=== PATIENT | male | born 1970 | race Caucasian/White ===

== ENCOUNTER 2016-08-30 09:35 | Emergency (ER) | payer BC ==
[~2016-08-30] VITALS: Wt 110.0 kg
[2016-08-30] MEDS ORDERED: KETOROLAC 15 MG INJ IV STA (10:45)
[2016-08-30] MEDS ORDERED: SOD CHLORIDE 0.9% 1,000 ML IV STA (10:45)
[2016-08-30] MEDS ORDERED: LORAZEPAM 0.5 MG TAB PO ONE (11:00)
[2016-08-30 11:04] LABS: BASOPHILS % 0.6 % (0.0-2.0); EOSINOPHILS # 0.2 10^3/ul (0.0-0.5); EOSINOPHILS % 3.6 % (0.0-7.0); HEMATOCRIT 49.4 % (42.0-52.0); HEMOGLOBIN 16.9 g/dl (14.0-18.0); LYMPHOCYTES # 2.8 10^3/ul (0.8-2.9); LYMPHOCYTES % 42.3 % (15.0-51.0); MEAN CORPUSCULAR HEMOGLOBIN 31.8 pg (29.0-33.0); MEAN CORPUSCULAR HGB CONC 34.1 g/dl (32.0-37.0); MEAN CORPUSCULAR VOLUME 93.2 fl (82.0-101.0); MEAN PLATELET VOLUME 10.5 fl (7.4-10.4); MONOCYTE # 0.5 10^3/ul (0.3-0.9); MONOCYTES % 7.1 % (0.0-11.0); NEUTROPHILS % 46.4 % (39.0-77.0); PLATELET COUNT 117 10^3/UL (140-440); RED CELL DISTRIBUTION WIDTH 13.1 % (11.5-14.5); UNCORRECTED WBC 6.6 10^3/ul (4.8-10.8); WHITE BLOOD COUNT 6.6 10^3/ul (4.8-10.8)
[2016-08-30 11:05] LABS: CONDITION 1
[2016-08-30 11:18] LABS: CHLORIDE 105 mmol/L (97-110)
[2016-08-30 11:19] LABS: POTASSIUM 3.8 mmol/L (3.5-5.1); SODIUM 146 mmol/L (135-144)
[2016-08-30 11:21] LABS: CREATININE 0.66 mg/dl (0.61-1.24)
[2016-08-30 11:22] LABS: ANION GAP 18 (8-16); BLOOD UREA NITROGEN 11 mg/dl (7-20); CALCIUM 9.5 mg/dl (8.4-10.2); CARBON DIOXIDE 27 mmol/L (21-31); GLUCOSE 105 mg/dl (70-220)
[2016-08-30 11:42] LABS: TROPONIN-I < 0.012 ng/ml (0.00-0.12)
[2016-08-30] MEDS ORDERED: IBUP-1542 PO (12:23)
[2016-08-30] MEDS ORDERED: HYD25 PO (12:23)
--- NOTE | 2016-08-30 12:27 | ERD ---
ER Documentation Chief Complaint Date/Time DATE: 08/30/16 TIME: 12:24 Chief Complaint "cp, cortes, high blood pressure" per family HPI 45-year-old man complains of headache 1 week and recent increased blood pressure he denies using medications. 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 Patient denies fevers or chills, no shortness of breath although states he has sharp nonexertional nonradiating chest pain. ROS All systems reviewed and are negative except as per history of present illness. Medications Home Meds Active Scripts Ibuprofen* (Ibuprofen*) 600 Mg Tablet, 600 MG PO Q8 for PAIN, #30 TAB Prov:LOGAN ESTEVES MD 08/30/16 Hydrochlorothiazide* (Hydrochlorothiazide*) 25 Mg Tab, 50 MG PO DAILY, #30 TAB Prov:LOGAN ESTEVES MD 08/30/16 Allergies Allergies: Coded Allergies: No Known Allergy (Unverified , 08/30/16) PMhx/Soc Medical and Surgical Hx: pt denies Medical Hx, pt denies Surgical Hx History of Surgery: No Anesthesia Reaction: No Hx Neurological Disorder: No Hx Respiratory Disorders: No Hx Cardiac Disorders: No Hx Psychiatric Problems: No Hx Miscellaneous Medical Probl: No (PT DENIES M/S HX) Hx Alcohol Use: Yes (REGULARLY) Hx Substance Use: No Hx Tobacco Use: Yes Smoking Status: Current every day smoker FmHx Family History: No diabetes Physical Exam Vitals Vital Signs Date Time Temp Pulse Resp B/P Pulse Ox O2 Delivery O2 Flow Rate FiO2 08/30/16 12:51 98.2 71 16 128/77 99 Room Air 08/30/16 10:31 98.2 80 15 138/91 100 Room Air 08/30/16 09:57 97.0 83 20 145/83 100 Physical Exam GENERAL: Well-developed, well-nourished, well-hydrated, in no apparent distress , looks nontoxic in appearance HEENT: Moist mucous membranes, pink conjunctiva, no cervical spine tenderness or step-off deformities, no goiter, no jaundice or icterus, extraocular movements intact without pain. No submandibular induration, and no pharyngeal erythema NEURO: Alert and oriented 3, cranial nerves II through XII intact bilaterally, pupils equal round reactive to light, no focal deficits or facial asymmetry, sensation intact distally Strength 5/5 in upper and lower extremities bilaterally CARDIAC: Regular rate and rhythm, no murmurs rubs or gallops LUNGS: Clear bilaterally no wheezing crackles or stridor ABDOMEN: Soft nontender, no guarding, no rigidity, no rebound, no psoas sign no obturator sign. Normoactive bowel sounds SKIN: Warm and dry to touch, no abrasions, contusions, or hematomas, no lacerations, no ecchymosis, no target lesions, and without ulcers EXTREMITIES: No clubbing cyanosis or edema, calves are bilaterally symmetrical, no Homans sign, no popliteal cord sign. Distal pulses equal and bilateral PSYCH: Normal affect without agitation or irritability Result Diagram: 08/30/16 1020 08/30/16 1020 Results 24 hrs Laboratory Tests Test 08/30/16 10:20 Anion Gap 18 Basophils # 0.010^3/ul Basophils % 0.6% Blood Morphology Comment Blood Urea Nitrogen 11mg/dl Calcium Level 9.5mg/dl Carbon Dioxide Level 27mmol/L Chloride Level 105mmol/L Creatinine 0.66mg/dl Eosinophils # 0.210^3/ul Eosinophils % 3.6% Glucose Level 105mg/dl Hematocrit 49.4% Hemoglobin 16.9g/dl Lymphocytes # 2.810^3/ul Lymphocytes % 42.3% Mean Corpuscular Hemoglobin 31.8pg Mean Corpuscular Hemoglobin Concent 34.1g/dl Mean Corpuscular Volume 93.2fl Mean Platelet Volume 10.5fl Monocytes # 0.510^3/ul Monocytes % 7.1% Neutrophils # 3.010^3/ul Neutrophils % 46.4% Nucleated Red Blood Cells # 0.010^3/ul Nucleated Red Blood Cells % 0.0/100WBC Platelet Count 44246^3/UL Potassium Level 3.8mmol/L Red Blood Count 5.3010^6/ul Red Cell Distribution Width 13.1% Sodium Level 146mmol/L Troponin I < 0.012ng/ml White Blood Count 6.610^3/ul Current Medications Medications (Trade) Dose Ordered Sig/Julio Cesar Route PRN Reason Start Time Stop Time Status Last Admin Dose Admin Lorazepam (Ativan) 0.5 mg ONCE ONCE PO 08/30/16 11:00 08/30/16 11:01 DC 08/30/16 10:56 Clonidine (Catapres) 0.1 mg ONCE ONCE PO 08/30/16 11:00 08/30/16 11:01 DC 08/30/16 10:57 Ketorolac Tromethamine 15 mg 15 mg ONCE STAT IV 08/30/16 10:45 08/30/16 10:46 DC 08/30/16 10:57 Sodium Chloride (NS) 1,000 ml @ 1,000 mls/hr Q1H STAT IV 08/30/16 10:45 08/30/16 11:44 DC 08/30/16 11:00 Procedures/MDM IV line was established patient was placed on lunchroom monitor rhythm strip revealed a sinus rhythm at about 90 bpm with upright P and T waves. Patient was afebrile. EKG performed, read by me revealed a normal sinus rhythm 91 bpm, normal axis, no acute ST changes, narrow QRS complex. I administered 1 L normal saline intravenously, clonidine 0.1 mg p.o. for hypertension, lorazepam 0.5 mg p.o. for anxiety, and Toradol 15 mg IV for headache with good improvement in symptoms. Differential diagnoses considered, included but not limited to acute coronary syndrome, pulmonary embolism, aortic dissection, abdominal aortic aneurysm, sepsis, stroke, meningitis, encephalitis, pneumonia, appendicitis, cholecystitis , bowel obstruction, pyelonephritis, nephrolithiasis, cystitis, as well as metabolic, hematologic, and electrolyte abnormalities. As well as abscess, cellulitis, fractures, and dislocations. Patient feels much better at this time, and vital signs are normal, symptoms have improved. I did give strict instructions to return to the ED if symptoms continue or worsen, patient will otherwise follow-up with primary care physician. Patient understood instructions and agreed to plan. Departure Diagnosis: Primary Impression: Hypertension Hypertension type: essential hypertension Qualified Code: I10 - Essential hypertension Additional Impressions: Headache Headache type: tension-type Headache chronicity pattern: unspecified pattern Intractability: not intractable Qualified Code: G44.209 - Tension- type headache, not intractable, unspecified chronicity pattern Chest pain Chest pain type: unspecified Qualified Code: R07.9 - Chest pain, unspecified type Condition: Good Patient Instructions: High Blood Pressure (Hypertension), Headache, Tension LOGAN ESTEVES MD Aug 30, 2016 12:26
[2016-08-30 12:51] VITALS: BP 128/77; PULSE 71; RESP 16; TEMP 98.2
== END 2016-08-30 12:52 | disposition home or self-care (01) ==
LOC: E/R 09:35
DX: I10 Essential (primary) hypertension (principal); G44.209 Tension-type headache, unspecified, not intractable; R07.9 Chest pain, unspecified; F17.210 Nicotine dependence, cigarettes, uncomplicated; R40.2142 Coma scale, eyes open, spontaneous, at arrival to emergency department; R40.2252 Coma scale, best verbal response, oriented, at arrival to emergency department; R40.2362 Coma scale, best motor response, obeys commands, at arrival to emergency department
CPT/HCPCS: 36415; 80048; 84484; 85025; 96361; 96374; J1885; J7030; Z7502; Z7610